=== PATIENT | male | born 1955 | race African-American/Black ===

== ENCOUNTER 2017-10-11 08:52 | Day surgery (SDC) | payer OTHER ==
[~2017-10-11] VITALS: Ht 170.2 cm; Wt 122.5 kg
[2017-10-11] VITALS (9 sets, daily range): BP systolic 137–171; BP diastolic 77–105
--- NOTE | 2017-10-11 07:19 | Pre-Procedure Note/Attestation ---
Pre-Procedure Note/Attestation Complete Prior to Procedure Planned Procedure: left Procedure Narrative: shoulder arthroscopy rct and labral repair Indications for Procedure Pre-Operative Diagnosis: left shoulder labral tear and rct Attestation I attest that I discussed the nature of the procedure; its benefits; risks and complications; and alternatives (and the risks and benefits of such alternatives ), prior to the procedure, with the patient (or the patient's legal pharmaceutical sales representative). I attest that, if there was a reasonable possibility of needing a blood transfusion, the patient (or the patient's legal pharmaceutical sales representative) was given the [facility] standardized written summary, pursuant to the Anjum Jacob Blood Safety Act ([place] Health and Safety Code # 1645, as amended). I attest that I re-evaluated the patient just prior to the surgery and that there has been no change in the patient's H&P, except as documented below: NADYA MELVIN Oct 11, 2017 07:19
--- NOTE | 2017-10-11 07:20 | Operative Note - PDOC ---
Operative Note Operative Note Pre-op Diagnosis: left shoulder labral tear and rct Procedure: left shoulder arthroscopy Post-op Diagnosis: same as pre-op plus Operative Findings: consistent w/pre-op dx studies Anesthesia: regional Specimen: none Complications: none Condition: stable Estimated Blood Loss: none Implant(s) used?: Yes NADYA MELVIN Oct 11, 2017 07:19
[~2017-10-11 08:52] MED LIST: D5 1/2NS 1,000 ML IV SCH; HYDROmorphone 1mg/ml Carpuject SUBQ PRN; Norco 5mg/325mg tab ORAL PRN; Tylenol #3 tab (300mg/30mg) ORAL PRN; ceFAZolin 1gm in D5W 55ml IVP ONE; celeBREX 200mg Cap **SURGERY PATIENTS ONLY ORAL ONE; oxyCONTIN 20mg tab ORAL ONE
[2017-10-11] MEDS ORDERED: celeBREX 200mg Cap **SURGERY PATIENTS ONLY ORAL ONE (09:22)
[2017-10-11] MEDS ORDERED: LOSARTAN POTAS100 MG ORAL (09:45)
[2017-10-11] MEDS ORDERED: NORVASC10 MG ORAL (09:45)
[2017-10-11] MEDS ORDERED: ASPIR 8181 MG ORAL (09:45)
[2017-10-11] MEDS ORDERED: Bupivacaine 0.25% Inj 30ml INJ ONE (10:34)
[2017-10-11] MEDS ORDERED: EPINEPHrine 1mg/1ml Amp ONE (10:34)
[2017-10-11] MEDS ORDERED: Ropivacaine 2mg/ml Amp 20ml INJ ONE (10:40)
[2017-10-11] MEDS ORDERED: Neostigmine 1mg/ml 10ml Inj ONE (10:40)
[2017-10-11] MEDS ORDERED: Bupivacaine 0.5% Inj 30 ml vial INJ ONE (10:47)
[2017-10-11] MEDS ORDERED: Propofol 200mg/20ml IV ONE (10:47)
[2017-10-11] MEDS ORDERED: Metoclopramide 10mg/2ml Inj IVP PRN (11:00)
[2017-10-11] MEDS ORDERED: Metoclopramide 10mg/2ml Inj ONE (11:00)
[2017-10-11] MEDS ORDERED: fentaNYL 100 mcg/2 mL IV PRN (11:00)
[2017-10-11] MEDS ORDERED: Lidocaine 1% MPF 10mg/ml 5ml ONE (11:00)
[2017-10-11] MEDS ORDERED: fentaNYL 100 mcg/2 mL IV ONE (11:00)
[2017-10-11] MEDS ORDERED: Zemuron 50mg/5ml Inj IV ONE (11:00)
[2017-10-11] MEDS ORDERED: Hydromorphone 0.5mg/0.5ml inj IVP PRN (11:00)
[2017-10-11] MEDS ORDERED: Succinylcholine 20mg/ml 10ml vial ONE (11:00)
[2017-10-11] MEDS ORDERED: Acetaminophen (Non formulary) 100 ML IV ONE (11:00)
[2017-10-11] MEDS ORDERED: Midazolam 2mg/2ml Inj ONE (11:00)
[2017-10-11] MEDS ORDERED: Phenylephrine 10mg/ml Vial ONE (11:00)
[2017-10-11] MEDS ORDERED: LR 1000ml ONE (11:00)
--- NOTE | 2017-10-11 11:55 | Anethesia Preoperative Eval ---
Anesthesia Pre-op PMH/ROS General Date of Evaluation: Oct 11, 2017 Time of Evaluation: 10:50 Anesthesiologist: jamila ASA Score: ASA 2 Mallampati Score Class I : Soft palate, uvula, fauces, pillars visible Class II: Soft palate, uvula, fauces visible Class III: Soft palate, base of uvula visible Class IV: Only hard plate visible Mallampati Classification: Class II Surgeon: deedee Diagnosis: rotator cuff Surgical Procedure: left shoulder arthrosopy with rotator cuff repair Anesthesia History: none Family History: no anesthesia problems Allergies: Coded Allergies: No Known Allergies (Unverified , 10/11/17) Medications: see eMAR Past Medical History Cardiovascular: Reports: HTN Pulmonary: Denies: asthma, COPD, ROBERT, other Gastrointestinal/Genitourinary: Denies: GERD, CRI, ESRD, other Neurologic/Psychiatric: Denies: dementia, CVA, depression/anxiety, TIA, other Endocrine: Denies: DM, hypothyroidism, steroids, other HEENT: Denies: cataract (L), cataract (R), glaucoma, [place] (L), [place] (R), other Hematology/Immune: Denies: anemia, DVT, bleeding disorder, other Musculoskeletal/Integumentary: Reports: DJD Other: obesity PSxH Narrative: knee surgery Anesthesia Pre-op Phys. Exam Physician Exam Last Vital Signs Date Time Temp Pulse Resp B/P (MAP) Pulse Ox O2 Delivery O2 Flow Rate FiO2 10/11/17 09:38 98.9 80 20 149/90 99 Room Air Constitutional: NAD Neurologic: CN 2-12 intact Cardiovascular: RRR Respiratory: CTA Gastrointestinal: S/NT/ND Airway Exam Mallampati Classification 3 Mallampati Score: Class III Neck: thick TMD: 2fb ROM: full Teeth: missing - left lower Dentures: upper, lower Anesthesia Pre-op A/P Labs wnl Studies Pre-op Studies: EKG - sr Risk Assessment & Plan Assessment: denies cp Plan: general with peripheral nerve block Status Change Before Surgery: No Pre-Antibiotics Drug: ancef Given Within 1 Hr of Incision: Yes Time Given: 11:15 GELA KUHN CRNA Oct 11, 2017 11:55
--- NOTE | 2017-10-11 12:51 | Immediate Post-Op Evaluation ---
Immediate Post-Op Evalulation Immediate Post-Op Evalulation Procedure: left shoulder Date of Evaluation: Oct 11, 2017 Time of Evaluation: 12:45 IV Fluids: 800 Blood Pressure Systolic: 164 Blood Pressure Diastolic: 40 Pulse Rate: 74 Respiratory Rate: 14 O2 Sat by Pulse Oximetry: 99 Temperature (Fahrenheit): 97.1 Pain Score (1-10): 0 Nausea: No Vomiting: No Complications none Patient Status: awake, reacts Hydration Status: adequate Drug: ancef Given Within 1 Hr of Incision: Yes Time Given: 11:15 GELA KUHN CRNA Oct 11, 2017 12:51
--- NOTE | 2017-10-11 13:52 | 48 Hour Post Anesthesia Eval ---
Post Anesthesia Evaluation Procedure: left shoulder rotator cuff repair Date of Evaluation: Oct 11, 2017 Time of Evaluation: 13:51 Blood Pressure Systolic: 164 0: 40 Pulse Rate: 74 Respiratory Rate: 14 Temperature (Fahrenheit): 97.4 O2 Sat by Pulse Oximetry: 99 Airway: patent Nausea: No Vomiting: No If pain is > 6 Comment: 0 Hydration Status: adequate Cardiopulmonary Status: stable Mental Status/LOC: patient returned to baseline Post-Anesthesia Complications: none Follow-up care needed: N/A GELA KUHN CRNA Oct 11, 2017 13:52
--- NOTE | 2017-10-11 20:30 | Operative Note - Dictated ---
DATE OF OPERATION: 10/11/2017 SURGEON: Del Vergara M.D. [employer]ER ATTENDANT: None. ANESTHESIOLOGIST: Analy Dye CRNA PREOPERATIVE DIAGNOSES: 1. Left shoulder traumatic labral tear. 2. Left shoulder full-thickness rotator cuff tear. 3. Left shoulder impingement syndrome. 4. Left shoulder acromioclavicular joint arthropathy. POSTOPERATIVE DIAGNOSES: 1. Left shoulder traumatic anterior labral tear. 2. Left shoulder impingement syndrome. 3. Left shoulder acromioclavicular joint arthropathy. PROCEDURE: 1. Left shoulder diagnostic arthroscopy with extensive intra-articular debridement. 2. Left shoulder labral capsulorrhaphy. 3. Left shoulder subacromial decompression bursectomy. 4. Left shoulder AC joint coplaning. INDICATIONS FOR PROCEDURE: The patient is a pleasant 62-year-old gentleman with left shoulder pain. The patient has significant pain in the left shoulder, failed conservative treatment. He had an MRI, which showed a tear of the inferior labrum as well as possible full-thickness rotator cuff tear impingement syndrome. After failing conservative treatment, he elected to undergo left shoulder diagnostic arthroscopy and possible labral stabilization with concurrent rotator cuff repair and subacromial decompression bursectomy. Risks, limitations, expectations, and complications of the procedure were discussed in detail. All questions addressed. DESCRIPTION OF PROCEDURE: An informed consent was obtained. The patient was brought to the operating room and was placed supine under monitored anesthesia control. The patient was then carefully placed in a beach-chair position. Left shoulder was prepped and draped in a sterile manner. Time-out was performed. Inferolateral stab incision was then made. Trocar was introduced into the glenohumeral joint. There was significant tearing of the anterior labrum extended to the inferior portion. The superior labrum was intact. The biceps tendon was intact and the rotator cuff was completely intact. At this point, two anchors were placed at the rotator interval. The soft tissue along the anterior margin of the glenoid was debrided down to bleeding bone. Two mattress sutures were then used to stitch down the anterior-inferior labrum back to the glenoid. Once secure fixation was obtained, the camera was repositioned in the subacromial space. There was some definite hypertrophic bursal tissue as well as acromial bone spur. Complete bursectomy was performed. The undersurface of the acromion was identified and acromioplasty was started from lateral to medial and completed from posterior to anterior. The bursectomy was then further completed to allow complete visualization of the bursal side of the rotator cuff, which was intact. At this point, the instruments removed. Portal sites were closed using 3-0 Monocryl suture. Steri-Strips and a sterile dressing were applied. The patient was awoken and taken to recovery with stable vital signs. ESTIMATED BLOOD LOSS: None. COMPLICATIONS: None. SPECIMENS: None. IMPLANTS: Include two labral Biomet rotator anchors. Del Vergara M.D. DR: Severo JOB#: [id number] CC: ROGER
--- NOTE | 2017-10-19 06:31 | Operative Note - Dictated ---
DATE OF OPERATION: 10/11/2017 NOTE: INCOMPLETE DICTATION (add to job [id number]) PREOPERATIVE DIAGNOSES: 1. Left shoulder traumatic labral tear. 2. Left shoulder full-thickness rotator cuff tear. 3. Left shoulder impingement syndrome. 4. Left shoulder acromioclavicular joint arthropathy. POSTOPERATIVE DIAGNOSES: 1. Left shoulder traumatic anterior labral tear. 2. Left shoulder impingement syndrome. 3. Left shoulder acromioclavicular joint arthropathy. PROCEDURE: 1. Left shoulder diagnostic arthroscopy with extensive intra-articular debridement. 2. Left shoulder labral capsulorrhaphy. 3. Left shoulder subacromial decompression bursectomy. 4. Left shoulder AC joint coplaning. Del Vergara M.D. DR: LORA JOB#: [id number] CC:
== END 2017-10-11 14:20 | disposition home or self-care (01) ==
LOC: SUR 08:52
DX: S43.402A Unspecified sprain of left shoulder joint, initial encounter (principal); I10 Essential (primary) hypertension; E66.01 Morbid (severe) obesity due to excess calories; Z68.41 Body mass index [BMI] 40.0-44.9, adult; H26.493 Other secondary cataract, bilateral; Z82.61 Family history of arthritis; Z82.49 Family history of ischemic heart disease and other diseases of the circulatory system; X58.XXXA Exposure to other specified factors, initial encounter; Y93.9 Activity, unspecified; Y92.9 Unspecified place or not applicable
CPT/HCPCS: 29826; J0171; J0330; J0690; J2250; J2370; J2405; J2704; J2710; J2765; J2795; J3010; J3490; J7120; 94003; 94150; C1713